=== PATIENT | female | born 1960 | race Caucasian/White ===

== ENCOUNTER 2016-03-29 16:58 | Emergency (ER) | payer OTHER ==
[~2016-03-29] VITALS: Ht 170.2 cm; Wt 75.0 kg
[~2016-03-29 16:58] MED LIST: [UNRECOGNIZED DRUG - OTHER] ORAL
[2016-03-29 17:00] VITALS: Ht 170.2 cm; Wt 75.0 kg
[2016-03-29] MEDS ORDERED: AZIT250T94 PO (18:35)
[2016-03-29] MEDS ORDERED: IBUP-1542 PO (18:35)
[2016-03-29] MEDS ORDERED: D-ME473S18 PO (18:35)
--- NOTE | 2016-03-29 18:37 | ERD ---
ER Documentation Chief Complaint Date/Time DATE: 03/29/16 TIME: 18:36 Chief Complaint cold symptoms x 10 days HPI This 55-year-old female presents with cough and fever worsening over the last 5 days. She has slight productive mucus. She denies vomiting, abdominal pain, urinary complaints, neck stiffness, rashes. She has a roommate with similar symptoms. ROS All systems reviewed and are negative except as per history of present illness. Medications Home Meds Active Scripts Ibuprofen* (Motrin*) 600 Mg Tab, 600 MG PO Q6, #15 TAB Prov:JENNIE PENA MD 03/29/16 Dextromethorphan Hb-Promethazine Hcl (Promethazine DM Syrup) 473 Ml Syrup, 5 ML PO Q6H Y for COUGH, #4 OZ Prov:EJNNIE PENA MD 03/29/16 Azithromycin* (Zithromax*) 250 Mg Tablet, 250 MG PO .ZPACK DIRECTED, #6 TAB TAKE 500 MG (2 TABS) THE FIRST DAY THEN 250 MG (1 TAB) DAYS 2-5 Prov:JENNIE PENA MD 03/29/16 Reported Medications [fremov] No Conflict Check, 1 TAB ORAL 11/09/15 Allergies Allergies: Coded Allergies: No Known Allergy (Unverified , 11/09/15) PMhx/Soc History of Surgery: Yes (hysterectomy 2009,) Anesthesia Reaction: No Hx Neurological Disorder: No Hx Respiratory Disorders: No Hx Cardiac Disorders: No Hx Psychiatric Problems: No Hx Miscellaneous Medical Probl: No Hx Alcohol Use: Yes (OCCASSIONAL) Hx Substance Use: No Hx Tobacco Use: Yes (SOCIALLY) Smoking Status: Light tobacco smoker Physical Exam Vitals Vital Signs Date Time Temp Pulse Resp B/P Pulse Ox O2 Delivery O2 Flow Rate FiO2 03/29/16 17:00 101.0 88 18 135/82 98 Physical Exam Const: [] Alert, [id number] per Head: Atraumatic Eyes: Normal Conjunctiva ENT: Normal External Ears, Nose and Mouth. Neck: Full range of motion..~ No meningismus. Resp: Clear to auscultation bilaterally. Slight rhonchi without rales or wheezing appreciated. Cardio: Regular rate and rhythm, no murmurs Abd: Soft, non tender, non distended. Normal bowel sounds Skin: No petechiae or rashes Back: No midline or flank tenderness Ext: No cyanosis, or edema Neur: Awake and alert Psych: Normal Mood and Affect Results 24 hrs Current Medications Medications (Trade) Dose Ordered Sig/Martita Route PRN Reason Start Time Stop Time Status Last Admin Dose Admin Ibuprofen (Motrin) 600 mg ONCE ONCE PO 03/29/16 19:00 03/29/16 19:01 Procedures/MDM Patient is given ibuprofen for fever. Patient declines an x-ray. Patient presents with URI symptoms and fever for last 5 days. Given the duration and symptoms she will be treated with Zithromax, promethazine and ibuprofen although this may be viral illness. Patient is advised to recheck for new or worsening symptoms with primary doctor this week. Signs and symptoms do not suggest hypoxemia, respiratory distress, pulmonary pleasant, acute coronary syndrome, acute abdomen, UTI. The patient was stable with no new complaints during the ER course. Clinically, there is no current evidence to suggest meningitis, sepsis, acute abdomen, pneumonia, acute coronary syndrome, pulmonary embolism, or any other emergent condition appearing to require further evaluation or hospitalization. The patient should certainly return for any new or worsening symptoms per the aftercare instructions. They should otherwise follow-up with her primary care doctor for reevaluation this week. Departure Diagnosis: Primary Impression: Upper respiratory infection URI type: unspecified URI Qualified Code: J06.9 - Upper respiratory tract infection, unspecified type Condition: Stable Patient Instructions: Acute Bronchitis Additional Instructions: Recheck for new or worsening symptoms or primary care doctor. JENNIE PENA MD Mar 29, 2016 18:37
[2016-03-29] MEDS ORDERED: IBUPROFEN 600 MG TAB PO ONE (19:00)
== END 2016-03-29 18:48 | disposition home or self-care (01) ==
LOC: FTE 16:58
DX: J06.9 Acute upper respiratory infection, unspecified (principal); F17.210 Nicotine dependence, cigarettes, uncomplicated
CPT/HCPCS: Z7502; Z7610; 99284

== ENCOUNTER 2016-06-26 13:25 | Emergency (ER) | payer OTHER ==
[~2016-06-26] VITALS: Ht 160 cm; Wt 90.0 kg
[~2016-06-26 13:25] MED LIST changes: +AZIT250T94 PO; +D-ME473S18 PO; +IBUP-1542 PO
[2016-06-26 13:38] VITALS: Ht 160 cm; Wt 90.0 kg
[2016-06-26] MEDS ORDERED: ALBU8.5H3 INH (14:38)
[2016-06-26] MEDS ORDERED: AMOX1TAB10 PO (14:38)
--- NOTE | 2016-06-26 15:08 | ERD ---
ER Documentation Chief Complaint Date/Time DATE: 06/26/16 TIME: 15:07 Chief Complaint COUGH X6 DAYS HPI 56-year-old female presents emergency Department cough for 6 days. She describes as a dry cough, worse at nighttime associated wheezing at night. She states that she usually smokes 1 cigarette night. Cough is dry, no hemoptysis. Denies chest pain, shortness breath. She denies any fevers or recent travel. ROS All systems reviewed and are negative except as per history of present illness. Medications Home Meds Active Scripts Albuterol Sulfate* (Proair HFA*) 8.5 Gm Hfa.aer.ad, 2 PUFF INH Q4, #1 INHALER Prov:PAPI BRODERICK PA-C 06/26/16 Amoxicillin/Potassium Clav (Amox-Clav 875-125 mg Tablet) 875-125 mg Tab, 1 TAB PO BID for 7 Days, #14 TAB Prov:PAPI BRODERICK PA-C 06/26/16 Ibuprofen* (Motrin*) 600 Mg Tab, 600 MG PO Q6, #15 TAB Prov:JENNIE PENA MD 03/29/16 Dextromethorphan Hb-Promethazine Hcl (Promethazine DM Syrup) 473 Ml Syrup, 5 ML PO Q6H Y for COUGH, #4 OZ Prov:JENNIE PENA MD 03/29/16 Azithromycin* (Zithromax*) 250 Mg Tablet, 250 MG PO .ZPACK DIRECTED, #6 TAB TAKE 500 MG (2 TABS) THE FIRST DAY THEN 250 MG (1 TAB) DAYS 2-5 Prov:JENNIE PENA MD 03/29/16 Reported Medications [fremov] No Conflict Check, 1 TAB ORAL 11/09/15 Allergies Allergies: Coded Allergies: No Known Allergy (Unverified , 11/09/15) PMhx/Soc History of Surgery: Yes (hysterectomy 2009,) Anesthesia Reaction: No Hx Neurological Disorder: No Hx Respiratory Disorders: No Hx Cardiac Disorders: No Hx Psychiatric Problems: No Hx Miscellaneous Medical Probl: No Hx Alcohol Use: Yes (OCCASSIONAL) Hx Substance Use: No Hx Tobacco Use: Yes (SOCIALLY) Physical Exam Vitals Vital Signs Date Time Temp Pulse Resp B/P Pulse Ox O2 Delivery O2 Flow Rate FiO2 06/26/16 13:38 98.1 98 20 144/82 99 Physical Exam General: Well-developed, well-nourished. The patient appears in no acute distress. HEENT: Head is normocephalic, atraumatic. No scleral icterus. Neck: Supple. Nontender. Lungs: Clear to auscultation. Normal air movement. Heart: Regular rate and rhythm. S1 and S2 are normal. No murmurs, gallops, or rubs. Abdomen: Nondistended. Extremities: No clubbing or cyanosis. Moving extremities x 4. No weakness. Neurologic: Alert and oriented 3. No focal deficits. Normal speech and gait. Skin: Normal turgor. No rash or lesions. Procedures/MDM The patient is a 56-year-old female who comes in with an acute upper respiratory infection versus bronchitis. The patient has a differential diagnosis of a viral upper respiratory infection, bacterial upper respiratory infection, bronchitis, pneumonia, pharyngitis, laryngitis, epiglottitis, croup, pneumonia. Patient has a normal pulmonary examination, clear breath sounds, normal pulse oximetry, with no corrective measures needed at this time. Fluids, rest, antipyretics were encouraged. Departure Diagnosis: Primary Impression: Acute bronchitis Condition: Good Patient Instructions: Bronchitis, Antiobiotic Treatment (Adult) Additional Instructions: Call your primary care doctor TOMORROW for an appointment during the next 1-2 days.See the doctor sooner or return here if your condition worsens before your appointment time. PAPI BRODERICK PA-C Jun 26, 2016 15:08
== END 2016-06-26 14:37 | disposition home or self-care (01) ==
LOC: E/R 13:25
DX: J20.9 Acute bronchitis, unspecified (principal); F17.210 Nicotine dependence, cigarettes, uncomplicated
CPT/HCPCS: 99284

== ENCOUNTER 2016-09-13 21:53 | Emergency (ER) | payer OTHER ==
[~2016-09-13] VITALS: Ht 167.6 cm; Wt 77.5 kg
[~2016-09-13 21:53] MED LIST changes: +ALBU8.5H3 INH; +AMOX1TAB10 PO
[2016-09-13 22:00] VITALS: Ht 167.6 cm; Wt 77.5 kg
--- NOTE | 2016-09-13 22:33 | ERA ---
ER Documentation Chief Complaint Date/Time DATE: 09/13/16 TIME: 22:27 Chief Complaint fever/body aches/weakness x 3 days HPI This is an otherwise healthy 52-year-old female who presents complaining of weakness and fatigue over the past 2-3 months. Patient is also worried about a possible lesion that appeared 1 month ago on the left breast near the nipple. The lesion has since subsided. Patient describes lesion as a pimple. Patient denies recent travel, fever, headache, night sweats, chills, cough, shortness of breath, chest pain, dyspnea, dysuria, hematuria, back pain, neck pain. Denies hot/cold intolerance, hair changes, tremors or bleeding. Patient has tried to use caffeinated beverages to improve fatigue with only short-term success. Patient's vaccination status is up-to-date. The nursing notes and previous documents have been reviewed and are consistent with the history given. ROS All systems reviewed and are negative except as per history of present illness. Medications Home Meds Active Scripts Albuterol Sulfate* (Proair HFA*) 8.5 Gm Hfa.aer.ad, 2 PUFF INH Q4, #1 INHALER Prov:PAPI BRODERICK PA-C 06/26/16 Amoxicillin/Potassium Clav (Amox-Clav 875-125 mg Tablet) 875-125 mg Tab, 1 TAB PO BID for 7 Days, #14 TAB Prov:PAPI BRODERICK PA-C 06/26/16 Ibuprofen* (Motrin*) 600 Mg Tab, 600 MG PO Q6, #15 TAB Prov:JENNIE PENA MD 03/29/16 Dextromethorphan Hb-Promethazine Hcl (Promethazine DM Syrup) 473 Ml Syrup, 5 ML PO Q6H Y for COUGH, #4 OZ Prov:JENNIE PENA MD 03/29/16 Azithromycin* (Zithromax*) 250 Mg Tablet, 250 MG PO .MelaniaPACK DIRECTED, #6 TAB TAKE 500 MG (2 TABS) THE FIRST DAY THEN 250 MG (1 TAB) DAYS 2-5 Prov:JENNIE PENA MD 03/29/16 Reported Medications [fremov] No Conflict Check, 1 TAB ORAL 11/09/15 Allergies Allergies: Coded Allergies: No Known Allergy (Unverified , 09/13/16) PMhx/Soc History of Surgery: Yes (hysterectomy 2010,) Anesthesia Reaction: No Hx Neurological Disorder: No Hx Respiratory Disorders: No Hx Cardiac Disorders: No Hx Psychiatric Problems: No Hx Miscellaneous Medical Probl: No Hx Alcohol Use: Yes (OCCASSIONAL) Hx Substance Use: No Hx Tobacco Use: Yes (SOCIALLY) Physical Exam Vitals Vital Signs Date Time Temp Pulse Resp B/P Pulse Ox O2 Delivery O2 Flow Rate FiO2 09/13/16 23:19 98.4 76 20 138/83 97 Room Air 09/13/16 22:00 98.5 95 20 139/83 97 Physical Exam Const: Healthy-appearing. Well-nourished. Well-developed. No acute distress. Head: Normocephalic, Atraumatic. Eyes: Non-injected; No scleral erythema, discharge or foreign body. EOMI and SHIRAZ bilaterally. Ears: Normal External Ears, EACs clear, TM normal bilaterally without erythema. Nose: Normal nose without discharge, septal deviation, or sinus tenderness. Oral: No oral edema visualized. Mucous membranes moist and pink. Neck: No cervical lymphadenopathy, masses or goiter palpated. Full range of motion. Supple. Trachea midline. ~ No meningismus. Pulm: Good air movement in upper and lower respiratory tracts. No dyspnea, stridor, tripoding or drooling. Clear to auscultation bilaterally. Cardio: Regular rate and rhythm; No murmurs, gallops or rubs auscultated. No JVD grossly observed. Radial and posterior tibial pulses 2+ bilaterally. No cyanosis. Capillary refill less than 2 seconds. Abd: Soft, non tender, non distended. No guarding, masses. Normal bowel sounds. No McBurney's point tenderness. MS: Normal motor strength, normal tone with gross examination. Skin: No petechiae or rashes. No ulcer, induration, jaundice. Good turgor. Back: No midline, flank or CVA tenderness. Ext: No cyanosis, or edema. Normal movement of all extremities grossly observed. Neur: Awake, alert and oriented x3. Neurovascularly intact bilaterally. Psych: Normal Mood and Affect. Breast exam unremarkable Procedures/MDM This is a 56-year-old female presenting with generalized weakness and possible breast abscess as described in the history and physical examination. Due to patient being worried about breast cancer physical exam was done by me, with manager wholesale Bela BHANDARI and was unremarkable. At this time I am unable to rule out chronic conditions including. However I have very little suspicion for bacterial involvement, cardiac disorder or endangerment of the airway. Patient's vitals are stable and her current condition is appropriate for discharge. Patient will be discharged with discharge instructions and return precautions. Departure Diagnosis: Primary Impression: Anxiety attack Condition: Stable Additional Instructions: Follow up with your PCP within the next 1-3 days for a more thorough evaluation and a possible referral to a specialist. Return the the emergency department immediately if symptoms worsen or change. If you have any questions regarding medications, ask your pharmacist or us before you leave. If any adverse reactions occur while taking your medications, discontinue the treatment and return to the emergency department immediately. Take your medications as directed, and complete the entire course of treatment. MAGNO YARBROUGH PA-C Sep 13, 2016 22:33
[2016-09-13 23:19] VITALS: BP 138/83; PULSE 76; RESP 20; TEMP 98.4
== END 2016-09-13 23:19 | disposition home or self-care (01) ==
LOC: FTE 21:53
DX: F41.9 Anxiety disorder, unspecified (principal)
CPT/HCPCS: 99282

== ENCOUNTER 2016-12-20 06:36 | Day surgery (SDC) | END 2016-12-20 11:40 | disposition home or self-care (01) | DX: D17.22 Benign lipomatous neoplasm of skin and subcutaneous tissue of left arm (principal) | CPT/HCPCS: 24071; 71010; 88307; 93005; J1100; J2250; J2405; J2710; J3010; Z7512; Z7610 ==

== ENCOUNTER 2016-12-22 05:44 | Emergency (ER) | payer OTHER ==
[~2016-12-22] VITALS: Ht 170.2 cm; Wt 78.5 kg
[2016-12-22 05:51] VITALS: Ht 170.2 cm; Wt 78.5 kg
[2016-12-22] MEDS ORDERED: AZIT250T94 PO (06:38)
[2016-12-22] MEDS ORDERED: CETI10CA PO (06:39)
[2016-12-22] MEDS ORDERED: IBUP-1542 PO (06:39)
--- NOTE | 2016-12-22 06:44 | ERD ---
ER Documentation Chief Complaint Date/Time DATE: 12/22/16 TIME: 06:41 Chief Complaint cough x 4 days, fever at times, sore throat HPI This is a 56-year-old female who presents the emergency department today complaining of cough, sore throat and some nasal congestion for the past 2-3 days. States she has tried [id number] medications with no improvement in symptoms. She has a lot of pain with swallowing. states she wants antibiotics. She smokes a few cigarettes a day. Denies any fevers or chills. ROS All systems reviewed and are negative except as per history of present illness. Medications Home Meds Active Scripts Cetirizine Hcl* (Zyrtec*) 10 Mg Capsule, 10 MG PO DAILY, #14 TAB.CHEW Prov:VALORIE SCANLON PA-C 12/22/16 Ibuprofen* (Motrin*) 600 Mg Tab, 600 MG PO Q6, #30 TAB Prov:VALORIE SCANLON PA-C 12/22/16 Azithromycin* (Zithromax*) 250 Mg Tablet, 250 MG PO .ZPACK DIRECTED, #6 TAB TAKE 500 MG (2 TABS) THE FIRST DAY THEN 250 MG (1 TAB) DAYS 2-5 Prov:VALORIE SCANLON PA-C 12/22/16 Discontinued Reported Medications [fremov] No Conflict Check, 1 TAB ORAL 11/09/15 Discontinued Scripts Albuterol Sulfate* (Proair HFA*) 8.5 Gm Hfa.aer.ad, 2 PUFF INH Q4, #1 INHALER Prov:PAPI BRODERICK PA-C 06/26/16 Amoxicillin/Potassium Clav (Amox-Clav 875-125 mg Tablet) 875-125 mg Tab, 1 TAB PO BID for 7 Days, #14 TAB Prov:PAPI BRODERICK PA-C 06/26/16 Ibuprofen* (Motrin*) 600 Mg Tab, 600 MG PO Q6, #15 TAB Prov:JENNIE PENA MD 03/29/16 Dextromethorphan Hb-Promethazine Hcl (Promethazine DM Syrup) 473 Ml Syrup, 5 ML PO Q6H Y for COUGH, #4 OZ Prov:JENNIE PENA MD 03/29/16 Azithromycin* (Zithromax*) 250 Mg Tablet, 250 MG PO .MelaniaPACK DIRECTED, #6 TAB TAKE 500 MG (2 TABS) THE FIRST DAY THEN 250 MG (1 TAB) DAYS 2-5 Prov:JENNIE PENA MD 03/29/16 Allergies Allergies: Coded Allergies: No Known Allergy (Unverified , 12/20/16) PMhx/Soc History of Surgery: Yes (Hysterectomy,R Carpal Tunnel Repair) Anesthesia Reaction: No Hx Neurological Disorder: No Hx Respiratory Disorders: No Hx Cardiac Disorders: No Hx Psychiatric Problems: No Hx Miscellaneous Medical Probl: No Hx Alcohol Use: No Hx Substance Use: No Hx Tobacco Use: Yes Smoking Status: Current some day smoker Physical Exam Vitals Vital Signs Date Time Temp Pulse Resp B/P Pulse Ox O2 Delivery O2 Flow Rate FiO2 12/22/16 05:51 98.2 74 20 133/85 97 Physical Exam Const: NAD Head: Atraumatic Eyes: Normal Conjunctiva ENT: Ears TM normal. Nose no drainage. Throat with erythema no exudate Neck: Full range of motion..~ No meningismus. Resp: Coarse breath sounds bilaterally in all lung kothari. Cardio: Regular rate and rhythm, no murmurs Abd: Soft, non tender, non distended. Normal bowel sounds Skin: No petechiae or rashes Back: No midline or flank tenderness Ext: No cyanosis, or edema Neur: Awake and alert Psych: Normal Mood and Affect Procedures/MDM This is a 56-year-old female who presents to the emergency department today complaining of cough, nasal congestion and sore throat for the past 3 days. Patient did have coarse breath sounds on physical exam and upon review of patient's medical records it appears that patient did have a chest x-ray a few days ago for a preop procedure. The chest x-ray was negative. I have low suspicion for pneumonia, PE, abscess, pleural effusion I do not feel she requires repeat imaging at this time. However given patient's coarse breath sounds in fact that she is a cigarette smoker I will treat the patient with azithromycin to cover her for bronchitis. I explained to the patient that this would also cover her for strep pharyngitis. Low suspicion for peritonsillar abscess, retropharyngeal abscess. Patient was given a prescription for azithromycin, Motrin, Zyrtec. At this time the patient is stable for discharge and outpatient management. Patient should follow up with their PCP in the next 1-2 days. They may return to the emergency department sooner for any persistent or worsening of symptoms. Patient understood and agreed with the plan. Departure Diagnosis: Primary Impression: URI (upper respiratory infection) URI type: unspecified URI Qualified Code: J06.9 - Upper respiratory tract infection, unspecified type Condition: Fair Patient Instructions: Preventing Common Respiratory Infections Additional Instructions: Call your primary care doctor TOMORROW for an appointment during the next 1-2 days.See the doctor sooner or return here if your condition worsens before your appointment time. Take medications as prescribed and drink plenty of fluids VALORIE SCANLON PA-C Dec 22, 2016 06:44
== END 2016-12-22 06:53 | disposition home or self-care (01) ==
LOC: FTE 05:44
DX: J06.9 Acute upper respiratory infection, unspecified (principal); F17.210 Nicotine dependence, cigarettes, uncomplicated
CPT/HCPCS: 99283

== ENCOUNTER 2017-05-09 21:51 | Emergency (ER) | END 2017-05-10 01:56 | disposition left against medical advice (07) ==

== ENCOUNTER 2017-05-12 07:10 | Emergency (ER) | END 2017-05-12 13:33 | disposition home or self-care (01) ==

== ENCOUNTER 2018-04-07 10:52 | Emergency (ER) | payer OTHER ==
[~2018-04-07] VITALS: Wt 80.2 kg
[~2018-04-07 10:52] MED LIST changes: -ALBU8.5H3 INH; -AMOX1TAB10 PO; +AZIT250T PO; -AZIT250T94 PO; +BENZ-6 PO; +CETI10CA PO; -D-ME473S18 PO; +PROM5SYR2 PO; +PSEU30TA38 PO; -[UNRECOGNIZED DRUG - OTHER] ORAL
[2018-04-07 10:54] VITALS: BP 149/92; PULSE 77; RESP 17
[2018-04-07] MEDS ORDERED: KETOROLAC 60 MG INJ IM STA (11:22)
[2018-04-07] MEDS ORDERED: CYCL10TA7 PO (13:22)
[2018-04-07] MEDS ORDERED: NAPR-985 PO (13:22)
--- NOTE | 2018-04-07 18:33 | ERD ---
ER Documentation Chief Complaint Chief Complaint LOW BACK PAIN X5 DAYS, NO INJURY HPI 57-year-old female patient with no significant past medical history presents her left pelvic region. Patient reports that she has had a previous hysterectomy in 2010, removed her right ovary and uterus however still has her left ovary. Patient reports that she wants to check the left ovary with an ultrasound. Denies any fever, chills, nausea, vomiting, diarrhea, neck stiffness, dysuria, constipation. ROS All systems reviewed and are negative except as per history of present illness. Medications Home Meds Active Scripts Naproxen* (Naprosyn*) 500 Mg Tablet, 500 MG PO BID PRN for PAIN AND/OR INFLAMMATION, #30 TAB Prov:ANGIE NICE PA-C 04/07/18 Cyclobenzaprine Hcl* (Cyclobenzaprine Hcl*) 10 Mg Tablet, 10 MG PO TID, #15 TAB Prov:ANGIE NICE PA-C 04/07/18 Benzonatate* (Tessalon Perle*) 100 Mg Capsule, 100 MG PO Q8H PRN for COUGH, #30 CAP Prov:CASEY CLAIRE PA-C 05/12/17 Pseudoephedrine Hcl* (Pseudoephedrine Hcl*) 30 Mg Tablet, 30 MG PO Q6 PRN for CONGESTION, #30 TAB Prov:CASEY CLAIRE PA-C 05/12/17 Promethazine HCl/Codeine (Prometh-Codein 6.25-10 mg/5 ml) 5 Ml Syrup, 5 ML PO QHS, #100 Prov:CASEY CLAIRE PA-C 05/12/17 Azithromycin* (Zithromax*) 250 Mg Tablet, 250 MG PO .MelaniaPACK DIRECTED, #6 TAB TAKE 500 MG (2 TABS) THE FIRST DAY THEN 250 MG (1 TAB) DAYS 2-5 Prov:CASEY CLAIRE PA-C 05/12/17 Cetirizine Hcl* (Zyrtec*) 10 Mg Capsule, 10 MG PO DAILY, #14 TAB.CHEW Prov:VALORIE SCANLON PA-C 12/22/ Ibuprofen* (Motrin*) 600 Mg Tab, 600 MG PO Q6, #30 TAB Prov:VALORIE SCANLON PA-C 12/22/16 Azithromycin* (Zithromax*) 250 Mg Tablet, 250 MG PO .ZPACK DIRECTED, #6 TAB TAKE 500 MG (2 TABS) THE FIRST DAY THEN 250 MG (1 TAB) DAYS 2-5 Prov:FATOUMATA SCANLONEric Sunshine PA-C 12/22/16 Allergies Allergies: Coded Allergies: No Known Allergy (Unverified , 12/20/16) PMhx/Soc History of Surgery: Yes (Hysterectomy,R Carpal Tunnel Repair) Anesthesia Reaction: No Hx Neurological Disorder: No Hx Respiratory Disorders: No Hx Cardiac Disorders: No Hx Psychiatric Problems: No Hx Miscellaneous Medical Probl: No Hx Alcohol Use: No Hx Substance Use: No Hx Tobacco Use: Yes Smoking Status: Unknown if ever smoked FmHx Family History: No diabetes, No coronary disease Physical Exam Vitals Vital Signs Date Temp Pulse Resp B/P (MAP) Pulse Ox O2 O2 Flow FiO2 Time Delivery Rate 04/07/18 97.3 77 17 149/92 99 10:54 (111) Physical Exam Const: [id number]-pgr-[id number], well-nourished. In no acute distress. Head: Atraumatic, normocephalic Eyes: Normal Conjunctiva without injection. No purulent discharge. ENT: Normal external ear, nose. Moist oropharynx without tonsillar exudates. Non-erythematous pharynx. Uvula midline. No drooling. No trismus. Neck: No cervical midline tenderness. Full range of motion. No meningismus. No cervical lymphadenopathy. No JVD. Resp: Clear to auscultation bilaterally. No wheezing, rhonchi, rales, or crackles. No accessory muscle use. No retractions. Cardio: Regular rate and rhythm. No murmurs, rubs or gallops. Abd: Soft, left lower pelvic tenderness, non distended. Normal bowel sounds. No palpable masses. No rebound tenderness. No guarding. Negative McBurney's point. Negative psoas sign. Negative obturator sign. : See exam in MDM. Skin: No petechiae or rashes Back: No midline tenderness. No CVA tenderness. Tenderness palpation of the left lumbar muscles. Ext: No cyanosis, or edema. Neur: Awake and alert. Normal gait. Normal coordination. Psych: Normal Mood and Affect he Results 24 hrs Laboratory Tests Test 04/07/18 11:40 Urine Color CORNEL Urine Clarity CLOUDY Urine pH 5.0 Urine Specific [place] 1.023 Urine Ketones NEGATIVE mg/dL Urine Nitrite NEGATIVE mg/dL Urine Bilirubin NEGATIVE mg/dL Urine Urobilinogen NEGATIVE mg/dL Urine Leukocyte Esterase NEGATIVE Chelsie/ul Urine Microscopic RBC 3 /HPF Urine Microscopic WBC 1 /HPF Urine Squamous Epithelial Cells FEW /HPF Urine Bacteria FEW /HPF Urine Mucus FEW /HPF Urine Hemoglobin NEGATIVE mg/dL Urine Glucose NEGATIVE mg/dL Urine Total Protein NEGATIVE mg/dl Current Medications Medications Dose Sig/Martita Start Time Status Last (Trade) Ordered Route PRN Stop Time Admin Dose Reason Admin Ketorolac 60 mg ONCE STAT 04/07/18 DC 04/07/18 Tromethamine IM 11:22 11:48 (Toradol) 04/07/18 11:24 Procedures/MDM 57-year-old female patient with no significant past medical history presents to ED complaining of low back pain that started 5 days ago. Patient is afebrile and nontoxic-appearing. Urinalysis shows no hematuria, nitrite, leukocyte esterase. IMPRESSION: Status post hysterectomy and right oophorectomy. Normal left ovary. No free fluid. Symptoms could be related to skill skeletal pain. Low suspicion for ectopic , ovarian torsion, gastritis, GERD, peptic ulcer disease, cholecystitis, choledocholithiasis, cholangitis, pancreatitis, appendicitis, bowel obstruction, ileus, volvulus, nephrolithiasis, pyelonephritis, hepatitis, perforated viscus, diverticulitis, strangulated/incarcerated hernia, DKA, acute abdomen, mesenteric ischemia or other emergent conditions. Patient is ambulating here in the ED without difficulty. Denies saddle anesthesia, numbness or tingling, urine or bowel incontinence, weakness. Low suspicion for cauda equina syndrome, cord compression, nephrolithiasis, aortic aneurysm, aortic dissection, epidural abscess, spinal hematoma, malignancy, pyelonephritis, or other emergent conditions. Diagnosis: Back Pain, Pelvic Pain Discharge medications: Naproxen, Flexeril Follow up with primary care physician in 1-2 days. Instructed patient to return to the ED sooner for any worsening symptoms. Patient's questions were answered. Patient is hemodynamically stable. Patient understood and agreed with discharge plan. Patient discharged stable. Disclaimer: Inadvertent spelling and grammatical errors are likely due to EHR/dictation software use and do not reflect on the overall quality of patient care. Also, please note that the electronic time recorded on this note does not necessarily reflect the actual time of the patient encounter. Departure Diagnosis: Primary Impression: Back pain Back pain location: back pain in unspecified location Chronicity: unspecified Back pain laterality: unspecified Qualified Codes: M54.9 - Dorsalgia, unspecified Additional Impression: Pelvic pain Patient Instructions: Muscle Spasm, Back Pain (Acute Or Chronic) Referrals: [facility] YOU HAVE RECEIVED A MEDICAL SCREENING EXAM AND THE RESULTS INDICATE THAT YOU DO NOT HAVE A CONDITION THAT REQUIRES URGENT TREATMENT IN THE EMERGENCY DEPARTMENT. FURTHER EVALUATION AND TREATMENT OF YOUR CONDITION CAN WAIT UNTIL YOU ARE SEEN IN YOUR DOCTORS OFFICE WITHIN THE NEXT 1-2 DAYS. IT IS YOUR RESPONSIBILITY TO MAKE AN APPOINTMENT FOR FOLOW-UP CARE. IF YOU HAVE A PRIMARY DOCTOR --you should call your primary doctor and schedule an appointment IF YOU DO NOT HAVE A PRIMARY DOCTOR YOU CAN CALL OUR PHYSICIAN REFERRAL HOTLINE AT IF YOU CAN NOT AFFORD TO SEE A PHYSICIAN YOU CAN CHOSE FROM THE FOLLOWING [facility] [address] [facility]. [facility] [address] [facility]. [facility] [address] [facility] [address] [facility]. [facility] [address] [facility]. [facility]. [address] [facility]. [facility] YOU HAVE RECEIVED A MEDICAL SCREENING EXAM AND THE RESULTS INDICATE THAT YOU DO NOT HAVE A CONDITION THAT REQUIRES URGENT TREATMENT IN THE EMERGENCY DEPARTMENT. FURTHER EVALUATION AND TREATMENT OF YOUR CONDITION CAN WAIT UNTIL YOU ARE SEEN IN YOUR DOCTORS OFFICE WITHIN THE NEXT 1-2 DAYS. IT IS YOUR RESPONSIBILITY TO MAKE AN APPOINTMENT FOR FOLOW-UP CARE. IF YOU HAVE A PRIMARY DOCTOR --you should call your primary doctor and schedule and appointment IF YOU DO NOT HAVE A PRIMARY DOCTOR YOU CAN CALL OUR PHYSICIAN REFERRAL HOTLINE AT . IF YOU CAN NOT AFFORD TO SEE A PHYSICIAN YOU CAN CHOSE FROM THE FOLLOWING [facility]: [facility] [address] [place] [address] [facility] [address] [place] [address] [facility] + [facility] [address] [place] [address] [facility] Additional Instructions: Call your primary care doctor TOMORROW for an appointment during the next 2-3 days.See the doctor sooner or return here if your condition worsens before your appointment time. ANGIE NICE PA-C Apr 07, 2018 18:33
== END 2018-04-07 13:29 | disposition home or self-care (01) ==
LOC: FTE 10:52
DX: M54.5 Low back pain (principal); R10.2 Pelvic and perineal pain; Z87.891 Personal history of nicotine dependence
CPT/HCPCS: 76830; 76856; 81001; 96372; J1885; Z7502

== ENCOUNTER 2018-04-21 11:29 | Emergency (ER) | payer OTHER ==
[~2018-04-21] VITALS: Ht 167.6 cm; Wt 80.7 kg
[~2018-04-21 11:29] MED LIST changes: +CYCL10TA7 PO; +NAPR-985 PO
[2018-04-21 11:34] VITALS: BP 141/82; PULSE 76; RESP 20; Ht 167.6 cm; Wt 80.7 kg
[2018-04-21] MEDS ORDERED: ACET500C5 PO (12:52)
[2018-04-21] MEDS ORDERED: BENZ-6 PO (12:52)
[2018-04-21] MEDS ORDERED: AZIT250T PO (12:52)
[2018-04-21] MEDS ORDERED: FLUT9.9S NASAL (12:52)
--- NOTE | 2018-04-21 12:56 | ERD ---
ER Documentation Chief Complaint Chief Complaint [place] of a fever and cough x 4 days HPI 57-year-old female patient with no significant past medical history presents to the ED stating that she has a dry cough, rhinorrhea, nasal congestion, headache that started 4 days ago. Denies any sick contacts. Denies any fever, chills, nausea, vomiting, diarrhea, neck stiffness. Denies any chest pain, shortness of breath, dyspnea on exertion, leg swelling. ROS All systems reviewed and are negative except as per history of present illness. Medications Home Meds Active Scripts Acetaminophen* (Tylophen*) 500 Mg Capsule, 1 CAP PO Q6H PRN for PAIN AND OR ELEVATED TEMP, #20 CAP Prov:ANGIE NICE-C 04/21/18 Fluticasone Propionate (Flonase Allergy Relief) 9.9 Ml [place].susp, 1 SPRAY NASAL DAILY, #1 BOTTLE TO EACH NOSTRIL Prov:ANGIE NICE-C 04/21/18 Azithromycin* (Zithromax*) 250 Mg Tablet, 250 MG PO .MelaniaPACK DIRECTED, #6 TAB TAKE 500 MG (2 TABS) THE FIRST DAY THEN 250 MG (1 TAB) DAYS 2-5 Prov:ANGIE NICEC 04/21/18 Benzonatate* (Tessalon Perle*) 100 Mg Capsule, 100 MG PO Q8H PRN for COUGH, #20 CAP Prov:ANGIE NICE-C 04/21/18 Naproxen* (Naprosyn*) 500 Mg Tablet, 500 MG PO BID PRN for PAIN AND/OR INFLAMMATION, #30 TAB Prov:ANGIE NICEC 04/07/18 Cyclobenzaprine Hcl* (Cyclobenzaprine Hcl*) 10 Mg Tablet, 10 MG PO TID, #15 TAB Prov:ANGIE NICEC 04/07/18 Benzonatate* (Tessalon Perle*) 100 Mg Capsule, 100 MG PO Q8H PRN for COUGH, #30 CAP Prov:CASEY CLAIRE PA-C 05/12/17 Pseudoephedrine Hcl* (Pseudoephedrine Hcl*) 30 Mg Tablet, 30 MG PO Q6 PRN for CONGESTION, #30 TAB Prov:CASEY CLAIRE PA-C 05/12/17 Promethazine HCl/Codeine (Prometh-Codein 6.25-10 mg/5 ml) 5 Ml Syrup, 5 ML PO QHS, #100 Prov:CASEY CLAIRE PA-C 05/12/17 Azithromycin* (Zithromax*) 250 Mg Tablet, 250 MG PO .ZPACK DIRECTED, #6 TAB TAKE 500 MG (2 TABS) THE FIRST DAY THEN 250 MG (1 TAB) DAYS 2-5 Prov:CASEY CLAIRE PA-C 05/12/17 Cetirizine Hcl* (Zyrtec*) 10 Mg Capsule, 10 MG PO DAILY, #14 TAB.CHEW Prov:VALORIE SCANLON PA-C 12/22/16 Ibuprofen* (Motrin*) 600 Mg Tab, 600 MG PO Q6, #30 TAB Prov:VALORIE SCANLON PA-C 12/22/16 Azithromycin* (Zithromax*) 250 Mg Tablet, 250 MG PO .ZPACK DIRECTED, #6 TAB TAKE 500 MG (2 TABS) THE FIRST DAY THEN 250 MG (1 TAB) DAYS 2-5 Prov:VALORIE SCANLON PA-C 12/22/16 Allergies Allergies: Coded Allergies: No Known Allergy (Unverified , 12/20/16) PMhx/Soc History of Surgery: Yes (Hysterectomy,R Carpal Tunnel Repair) Anesthesia Reaction: No Hx Neurological Disorder: No Hx Respiratory Disorders: No Hx Cardiac Disorders: No Hx Psychiatric Problems: No Hx Miscellaneous Medical Probl: No Hx Alcohol Use: No Hx Substance Use: No Hx Tobacco Use: Yes Smoking Status: Current some day smoker FmHx Family History: No diabetes, No coronary disease Physical Exam Vitals Vital Signs Date Temp Pulse Resp B/P (MAP) Pulse Ox O2 O2 Flow FiO2 Time Delivery Rate 04/21/18 98.0 76 20 141/82 97 11:34 (101) Physical Exam Const: [id number]-[id number]-frdwwcykz, well-nourished. In no acute distress. Head: Atraumatic, normocephalic Eyes: Normal Conjunctiva without injection. No purulent discharge. PERRL. EOMI ENT: Normal external ear. Ear canal without erythema. Tympanic membrane pearly mercado without effusion or bulging. Nasal canal clear with normal turbinates. Moist oropharynx without tonsillar exudates. Non-erythematous pharynx. Uvula midline. No drooling. No trismus. Neck: Full range of motion. No meningismus. No cervical lymphadenopathy. Resp: Clear to auscultation bilaterally. No wheezing, rhonchi, rales, or crackles. No accessory muscle use. No retractions. Cardio: Regular rate and rhythm. No murmurs, rubs or gallops. Abd: Soft, non tender, non distended. Normal bowel sounds. No palpable masses. No rebound tenderness. No guarding. Skin: No petechiae or rashes Back: No midline tenderness. No CVA tenderness. Ext: No cyanosis, or edema. Neur: Awake and alert. Psych: Normal Mood and Affect Procedures/MDM 57-year-old female patient with no significant past medical history presents to ED complaining of fever, cough, nasal congestion. Patient is afebrile and nontoxic-appearing. This patient presents to the ED with symptoms consistent with bronchitis. Patient will be given a prescription for Zithromax, orab-vff-ine prescription if symptoms do not improve patient can start antibiotics. Patient's physical exam include lungs which were clear to auscultation and a normal pulse oximetry. There is a low suspicion for pneumonia, pneumothorax, mononucleosis, pulmonary embolism, epiglottitis, otitis media, otitis externa, viral/strep pharyngitis, sinusitis, myocarditis, pericarditis, endocarditis, peritonsillar abscess, mastoiditis, retropharyngeal abscess, meningitis, sepsis, acute abdomen or other emergent conditions. Fluids, rest, and symptomatic treatment are recommended for the management of patient's symptoms. Diagnosis: Fever, Cough, Nasal congestion Discharge medications: Tylenol, Flonase, Zithromax Patient was instructed to return to the ED for any new or worsening symptoms. They should otherwise follow up with the primary care provider within 2-3 days. The patient's questions were answered at the time of discharge. Patient understood and agreed with discharge management. Disclaimer: Inadvertent spelling and grammatical errors are likely due to EHR/dictation software use and do not reflect on the overall quality of patient care. Also, please note that the electronic time recorded on this note does not necessarily reflect the actual time of the patient encounter. Departure Diagnosis: Primary Impression: Fever Fever type: unspecified Qualified Codes: R50.9 - Fever, unspecified Additional Impressions: Cough Nasal congestion Condition: Stable Patient Instructions: Bronchitis, Antiobiotic Treatment (Adult) Referrals: [facility] YOU HAVE RECEIVED A MEDICAL SCREENING EXAM AND THE RESULTS INDICATE THAT YOU DO NOT HAVE A CONDITION THAT REQUIRES URGENT TREATMENT IN THE EMERGENCY DEPARTMENT. FURTHER EVALUATION AND TREATMENT OF YOUR CONDITION CAN WAIT UNTIL YOU ARE SEEN IN YOUR DOCTORS OFFICE WITHIN THE NEXT 1-2 DAYS. IT IS YOUR RESPONSIBILITY TO MAKE AN APPOINTMENT FOR FOLOW-UP CARE. IF YOU HAVE A PRIMARY DOCTOR --you should call your primary doctor and schedule an appointment IF YOU DO NOT HAVE A PRIMARY DOCTOR YOU CAN CALL OUR PHYSICIAN REFERRAL HOTLINE AT IF YOU CAN NOT AFFORD TO SEE A PHYSICIAN YOU CAN CHOSE FROM THE FOLLOWING [facility] [address] [facility]. [facility] [address] [facility] [address] [facility] [address] [facility] [address] [facility]. [facility] [address] [facility]. [facility] YOU HAVE RECEIVED A MEDICAL SCREENING EXAM AND THE RESULTS INDICATE THAT YOU DO NOT HAVE A CONDITION THAT REQUIRES URGENT TREATMENT IN THE EMERGENCY DEPARTMENT. FURTHER EVALUATION AND TREATMENT OF YOUR CONDITION CAN WAIT UNTIL YOU ARE SEEN IN YOUR DOCTORS OFFICE WITHIN THE NEXT 1-2 DAYS. IT IS YOUR RESPONSIBILITY TO MAKE AN APPOINTMENT FOR FOLOW-UP CARE. IF YOU HAVE A PRIMARY DOCTOR --you should call your primary doctor and schedule and appointment IF YOU DO NOT HAVE A PRIMARY DOCTOR YOU CAN CALL OUR PHYSICIAN REFERRAL HOTLINE AT . IF YOU CAN NOT AFFORD TO SEE A PHYSICIAN YOU CAN CHOSE FROM THE FOLLOWING [facility] INSTITUTIONS: [facility] [address] [place] [address] [facility] [address] [place] [address] [facility] + [address] [place] [address] [facility] Additional Instructions: Call your primary care doctor TOMORROW for an appointment during the next 2-3 days.See the doctor sooner or return here if your condition worsens before your appointment time. ANGIE NICE PA-C Apr 21, 2018 12:56
[2018-04-21] MEDS ORDERED: IBUP-1542 PO (12:57)
== END 2018-04-21 13:14 | disposition home or self-care (01) ==
LOC: FTE 11:29
DX: R50.9 Fever, unspecified (principal); R09.81 Nasal congestion; F17.210 Nicotine dependence, cigarettes, uncomplicated
CPT/HCPCS: 99283